=== PATIENT | male | born 1945 | race Caucasian/White ===

== ENCOUNTER → 2017-01-23 | Day surgery (SDC) | payer MEDICARE, OTHER ==
[~2017-01-23] VITALS: Ht 175.3 cm; Wt 102.1 kg
[~2017-01-23] MED LIST: ASCO-294 PO; ASPI-973 PO; ATRV10T PO; CARV6.252 PO; CETI10CA PO; DULO60CA42 PO; FENO135C PO; FLUT16SP NS; GABA-500 PO; INSU100V SUBQ; INSU100V7 SUBQ; KEN25CR EXT; KLO1T PO; LANS30CA15 PO; Lactated Ringer's 1,000 ML IV ONE; Lactated Ringer's 1,000 ML IV SCH; MAGN500T PO; MENT2LOZ MM; MULT-1018 PO; MetoCLOpramide 5 mg/mL 2 mL Inj IVPUSH PRN; OMEG-38 PO; OXYC15TA79 PO; Ondansetron 2 mg/mL 2 mL Inj IVPUSH PRN; POLY17PO2 PO; Propofol 10,000 mCg/mL 20 mL Inj ONE; ROB500 PO; SENN-133 PO; TEST200V IM; TRAZ-118 PO; VITA400C64 PO
[2017-01-23 14:03] VITALS: BP 159/82; PULSE 62; RESP 16; O2SAT 100
--- NOTE | 2017-01-23 15:06 | PCM.HPANE ---
Patient Data Date of Service: Jan 23, 2017 Surgeon Admitting Provider: Attending Provider:Montrell Hansen MD Primary Care Physician:Miguelito Alvarez MD Other Provider:Ga Reed Anesthesia Reason for Visit Polyp Of Stomach Ht/WT & BMI Height (Feet): 5 Height (Inches): 9 Weight (Kilograms): 102.1 Body Mass Index 33.00 Allergies Coded Allergies: No Known Allergies (Verified Allergy, Unknown, 08/12/14) Past Anesthesia History Anesthesia History: Denies:: Abnormal Airway, Anesthesia Reactions, Difficult Intubation, Fam Anesthesia Reaction, Fam Malignant Hypertherm, Malignant Hyperthermia Diabetes History Hx Diabetes?: Yes Current Bedside Blood Glucose: 168 MRSA MRSA: No Medications Blood Thinner: Aspirin Hypertension Medication: Yes Home Meds Incl Beta Ekaterina: Yes Date Beta Ekaterina Taken: Jan 22, 2017 Reported Medications Polyethylene Glycol 3350 17 Gm Powd.pack17 Gm PO 01/19/17 Triamcinolone Acet (Triamcinolone Acetonide Cream)1 Applic/0.25 Gm Cr1 Applic EXT BID #60 GM Ref 0 01/19/17 Fenofibric Acid (Choline) (Trilipix)135 Mg Capsule.dr135 Mg PO DAILY 01/19/17 Multivitamin (Multi Vitamin Daily)1 Each Tablet1 Each PO DAILY 30 Days Ref 0 01/19/17 Cetirizine HCl (Zyrtec)10 Mg Fbbssnr13 Mg PO HS #30 CAPSULE Ref 0 01/19/17 Vitamin E Mixed (Vitamin E)400 Unit Gqqgfmy343 Unit PO DAILY 30 Days 01/19/17 Ascorbate Calcium (Vitamin C)500 Mg Tablet1,000 Mg PO DAILY 01/19/17 Menthol (Ricola)2 Mg Lozenge2 Mg MM DAILY 01/19/17 oxyCODONE 15 Mg Grmjmk50 Mg PO Q6H PRN For Pain Ref 0 01/19/17 Methocarbamol 500 Mg Awmtvv985 Mg PO BID 01/19/17 Fluticasone Propionate (Fluticasone Propionate Nasal)16 Gm [place].susp1 [place] NS BID #16 GM Ref 0 01/19/17 [place]-3/Dha/Epa/Fish Oil (Fish Oil 1,000 mg Softgel)1 Each Capsule1 Each PO DAILY 01/19/17 Aspirin 81 Mg Jfckwc40 Mg PO DAILY Ref 0 05/24/15 Insulin Glargine (Lantus U100 Insulin Vial)100 Unit/Ml Vial40 Unit SUBQ QPM- INSULIN #1 VIAL Ref 0 08/11/14 Testosterone Cypionate (Depo-Testosterone)200 Mg/1 Ml Dwgggjz758 Mg IM 08/11/14 Insulin Lisp Protam/Lisp Human (HumaLOG 50/50 U100 Insulin Vial)100 Unit/Ml Ml2 Unit SUBQ QPM #1 VIAL Ref 0 08/11/14 Sennosides (Senna)8.6 Mg Tablet8.6 Mg PO PRN For Constipation 08/11/[address] (Prevacid)30 Mg Capsule.dr30 Mg PO DAILY #30 CAPSULE Ref 0 08/11/14 Magnesium Oxide 500 Mg Agsngv198-476 Mg PO DAILY 08/11/14 Trazodone 100 Mg Rvsczy563 Mg PO HS #30 TABLET Ref 0 08/11/14 Gabapentin 100 Mg Dpiziyw924 Mg PO TID 30 Days Ref 0 08/11/14 Duloxetine (Cymbalta)60 Mg Capsule.dr60 Mg PO DAILY Ref 0 08/11/14 Clonazepam 1 Mg Tab1 Mg PO TID PRN For Anxiety 30 Days Ref 0 08/11/14 Carvedilol 6.25 Mg Tablet6.25 Mg PO BID Ref 0 08/11/14 Atorvastatin (Lipitor)10 Mg Tab10 Mg PO DAILY 30 Days Ref 0 08/11/14 Discontinued Reported Medications Mecobalamin (B-12)5,000 Mcg Tab.rapdis5,000 Mcg PO DAILY 08/11/14 Ipratropium [place] (Atrovent 0.03% Nasal)30 Ml Spray2 [place] NS TID #1 BOTTLE Ref 0 08/11/14 oxyCODONE 10 Mg Klrcbc74 Mg PO Q6H PRN For Pain Ref 0 08/11/[address] 135 Mg Capsule.dr135 Mg PO DAILY 30 Days Ref 0 08/11/14 History History of ENT Problems?: Yes HEENT History: Positive for:: Dysphagia Denies:: Abnormal Airway Difficult Intubation Hearing Problem Denture Type: Full- Upper Teeth Condition: Missing Teeth Hx of Heart Problems?: Yes Cardiovascular History: Positive for:: Coronary Artery Disease Hypertension Denies:: AICD Chest Pain Congestive Heart Failure Pacemaker Valvular Heart Disease Hx of Respiratory Problem?: Yes Respiratory History: Positive for:: COPD Denies:: Asthma Cough Hemoptysis Pneumonia Tuberculosis Hx Neurologic Problems?: No Neurological History: Denies:: CVA Hx of GI Problems?: Yes Hx of Problems?: No HX of Peritoneal Dialysis: No Hx Musculoskeletal Problems?: Yes Musculoskeletal History: Positive for:: Back Injury Denies:: Joint Replacement Hx of Psycho/Social Problems?: No Psycho Social History: Positive for:: Anxiety Denies:: Hx Depression Hx Surgeries?: Yes (ROTATOR CUFFS,) Hx Any Other Health Problems?: No Hx Diabetes: YesBedside Blood Glucose: 168 Hx Alcohol Use: NoHx Substance Use: No Smoking Status: Never Smoker Stop/Bang Treated for Sleep Apnea?: No S-Snoring: Do You Snore Loudly: Yes T-Tired: feel tired, fatigued: No O-Obsered: Observed not breath: No P-Blood Pressure: treated: Yes B- Body Mass Index > 35 kg/m2: No A- Age over 50: Yes N- Neck Large Circumference: Yes G- Gender Male: Yes BRUNA Total Score: 5 BRUNA Risk Assessment: High Risk, =/>3 Yes Risk Assessment Category Category 1A: Patient has history of documented sleep apnea, and HAS NOT received any narcotic, sedative or anesthesia administration during this stay. Category 1B: Patient has history of documented sleep apnea, and HAS received any narcotic , sedative or anesthesia administration during this stay Category 2: Patient has SUSPECTED Obstructive Sleep Apnea, and HAS received any narcotic , sedative or anesthesia administration during this stay. Category 3: Patient has SUSPECTED Obstructive Sleep Apnea and HAS NOT received narcotic, sedative or anesthesia administration during this stay. Category 4: Outpatient in Procedural Areas with known sleep apnea or who screen positive for High Risk via the STOP/BANG questionnaire. Exam Exam Vital Signs Vital Signs Date Time Temp Pulse Resp B/P Pulse Ox O2 Delivery O2 Flow Rate FiO2 01/23/17 14:03 62 16 159/82 100 Room Air General Appearance: Alert, Oriented X3 HEENT/AIRWAY: MP 2 Lungs: Clear to Auscultation Heart: Exam Unremarkable Meds/Labs/Diagnostics Bedside Blood Glucose: 168 Plan Impression Patient chart reviewed, patient interviewed and anesthestic plan with risks, benefits, and alternatives discussed, and informed consent obtained. NPO per Anesth. Guidelines: Yes ASA Physical Status: ASA3 Severe Disease Anesthetic Plan: MAC Bene/Risks/Altern/Consents: Yes HP Complete Prior to Induction: Yes Celso Ivey MD Jan 23, 2017 15:06
[2017-01-23 15:15] VITALS: BP 116/61; PULSE 65; RESP 15; O2SAT 96
[2017-01-23 15:25] VITALS: BP 122/62; PULSE 62; RESP 14; O2SAT 96
[2017-01-23 15:36] VITALS: BP 124/87; PULSE 61; RESP 16; O2SAT 97
--- NOTE | 2017-01-23 15:50 | ENDO ---
[address] [address] ENDOSCOPY PROCEDURE PATIENT: NOAM RUSH : 1945 MR#: [id number] ADMIT: 01/23/2017 JOB ID: [id number] PRIMARY PROVIDER: Miguelito Alvarez MD. PROCEDURE: Esophagogastroduodenoscopy with hot snare polypectomy and biopsies. INDICATIONS: A 71-year-old male with a history of hyperplastic gastric polyps returning for surveillance. EQUIPMENT: [id number]. SEDATION: Monitored anesthesia as provided by Dr. Celso Ivey. COMPLICATIONS: None identified. PROCEDURE INFORMATION: After the risks and benefits were explained, written and verbal informed consent was obtained, the patient was brought into the endoscopy suite and placed in the left lateral decubitus position. Sedation was achieved as above, the scope introduced in the mouth through the bite block, and advanced to the second portion of the duodenum. The scope was slowly withdrawn to carefully examine the mucosa for any defects or lesions. Retroflexed views were accomplished in the stomach. Ultimately, the stomach was decompressed. The scope removed from the patient who tolerated the procedure well. (We performed a second-look endoscopy and decompressed the stomach at the end of the case following Galvan net removal of the polyp.) FINDINGS: 1. Duodenum: No pathology appreciated from the bulb through to the second portion. 2. Stomach: In the prepyloric region, there was a cluster of nodularity that was rather firm under the biopsy forceps. A couple of subtle erosive features. No outlet obstruction. A couple of large biopsies were taken from this area for histopathologic analysis. In the proximal antrum, there was an approximately 8-10 mm, slightly irregular-appearing polyp that was sessile. This polyp was removed with hot snare polypectomy. We then removed the polyp by way of Galvan Net. A second-look endoscopy was pursued to re-evaluate the polypectomy defect, which was moderately deep. I attempted to place a 360 Resolution clip into position, but this seemed to not want to grab the rather firm surrounding mucosa and the tip of the clip would then dig right into the defect itself. I did not feel that I was getting anywhere with approximation using this technique and in order to avoid damaging the mucosa or to avoid a perforation, we elected to avoid this technique. There was no bleeding following the polypectomy. Otherwise, retroflexed views of the LES disclosed a diminutive benign- appearing polyp in that region as before, when compared to photographs from early 2016. 3. Esophagus: The squamocolumnar junction correlated with the top of the gastric folds. The GEJ was at about 40 cm from the incisors. Subtle sliding hiatal hernia noted. ENDOSCOPIC DIAGNOSES: 1. Subtle sliding hiatal hernia. 2. Diminutive gastric polyps. 3. Moderate-sized antral polyp. 4. Pre-pyloric nodularity. RECOMMENDATIONS: 1. Await histopathology. 2. Surveillance will be contingent on the pathology report. 3. The patient is given a week's course of sucralfate to coat the gastric mucosa and promote healing from the polypectomy site.
--- NOTE | 2017-01-23 15:50 | PCM.ANEP1 ---
Post Anesthesia PACU Phase 1 Assessment Vital Signs Vital Signs Date Time Temp Pulse Resp B/P Pulse Ox O2 Delivery O2 Flow Rate FiO2 01/23/17 15:15 65 15 116/61 96 Nasal Cannula 3 01/23/17 14:03 62 16 159/82 100 Room Air Anesthetic Administered: MAC Level of Alertness: Awake, talking Pain: No Nausea or Vomiting: No CV Function & Hydration Stable: Yes Airway Device: Oxygen Delivery: Room Air Lungs: Clear to Auscultation PACU Phase 2 Assessment Complications: No Follow up Care: N/A Patient Instructions Provided: N/A Celso Ivey MD Jan 23, 2017 15:50
--- NOTE | 2017-01-30 18:52 | PATH ---
SURGICAL PATHOLOGY Attending Physician:Vince Lindsey CASE STATUS: Signed Out PATIENT NAME: NOAM RUSH PID: [id number] : 1945 DATE COLLECTED:01/23/2017 00:00 SPECIMEN: 1: Stomach, Antrum, Biopsy 2: Stomach, Biopsy CLINICAL HISTORY: 1). ANTRUM POLYP 2). PREPYLORIC BIOPSY FINAL DIAGNOSIS: 1. Antral Polyp, Polypectomy: Hyperplastic gastric polyp with chronic mild active inflammation. Negative for Helicobacter organisms on immunohistochemistry. Negative for intestinal metaplasia, dysplasia or malignancy. 2. Prepyloric Stomach, Biopsy: Gastric antral-type mucosa with chronic gastritis and features of reactive gastropathy. Negative for Helicobacter organisms by immunohistochemistry. Negative for intestinal metaplasia, dysplasia or malignancy. ICD10: K31.7 GROSS DESCRIPTION: The specimen is received in two formalin filled containers labeled with the patient's name. 1). The specimen is labeled "antrum polyp" and consists of a 0.6 x 0.6 x 0.6 CM dumont-tamez to tamez brown portion of tissue which is bisected and entirely submitted in cassette 1A. 2). The specimen is labeled "prepyloric" and consists of a 0.2 x 0.2 x 0.2 CM portion of tissue which is entirely submitted in cassette 2A. 01/24/2017DC MICRO DESCRIPTION: Part 1: An immunohistochemical stain was performed to evaluate for Helicobacter organisms and is negative. A control stain showed appropriate reactivity. Part 2: An immunohistochemical stain was performed to evaluate for Helicobacter organisms and is negative. A control stain showed appropriate reactivity. * This test was developed and its performance characteristics determined by [facility]. It has not been cleared or approved by the U.S. Food and Drug Administration. The FDA has determined that such clearance or approval is not necessary. This test is used for clinical purposes. It should not be regarded as investigational or for research. ICD-9 CODES: CPT CODES: 1: 29462, 09152 2: 93279, 93235 Electronically Signed Out Ashu Hinson MD, Ph.D. [facility] Pathology [facility] [address], [place] [address] Technical component performed at [facility], [facility] [address], [place], [address]
== END | disposition home or self-care (01) ==
LOC: END 00:34
PROVIDERS: ATTEND Internal Medicine Gastroenterology
DX: K31.7 Polyp of stomach and duodenum (principal); K44.9 Diaphragmatic hernia without obstruction or gangrene; R10.9 Unspecified abdominal pain; K82.8 Other specified diseases of gallbladder; I12.9 Hypertensive chronic kidney disease with stage 1 through stage 4 chronic kidney disease, or unspecified chronic kidney disease; E78.5 Hyperlipidemia, unspecified; I25.10 Atherosclerotic heart disease of native coronary artery without angina pectoris; E11.22 Type 2 diabetes mellitus with diabetic chronic kidney disease; M48.06 Spinal stenosis, lumbar region; N18.3 Chronic kidney disease, stage 3 (moderate); K59.00 Constipation, unspecified; M19.90 Unspecified osteoarthritis, unspecified site; Z79.82 Long term (current) use of aspirin; Z79.4 Long term (current) use of insulin
CPT/HCPCS: 43239; 43251; J2704; J7120